=== PATIENT | female | born 1960 | race Caucasian/White ===

== ENCOUNTER 2021-07-16 13:41 | Outpatient (CLI) | payer OTHER | END 2021-07-16 13:42 | disposition home or self-care (01) | LOC: CSHULT 13:41 | PROVIDERS: ATTEND Internal Medicine Cardiovascular Disease | DX: I42.0 Dilated cardiomyopathy (principal); I34.0 Nonrheumatic mitral (valve) insufficiency; I07.1 Rheumatic tricuspid insufficiency | CPT/HCPCS: 93306 ==